=== PATIENT | male | born 2000 | race Caucasian/White ===

== ENCOUNTER 2022-02-03 08:00 | Outpatient (RCR) | payer OTHER, SELFPAY | END 2022-03-25 09:30 | disposition home or self-care (01) | PROVIDERS: Visit Provider Orthopaedic Surgery | DX: M25.561 Pain in right knee (principal); M25.661 Stiffness of right knee, not elsewhere classified; Z51.89 Encounter for other specified aftercare | CPT/HCPCS: 97110; 97112; 97140; 97161 ==

== ENCOUNTER 2024-07-11 12:52 | Outpatient (CLI) | payer OTHER, SELFPAY ==
--- NOTE | 2024-07-11 13:00 | CRLHL7_ITS ---
For Patients: As a result of the Century Cures Act, medical imaging exams and procedure reports are released immediately into your electronic medical record. You may view this report before your referring provider. If you have questions, please contact your health care provider. INDICATION: Left testicular swelling. TECHNIQUE: Scrotal ultrasound with grayscale and duplex Doppler images. FINDINGS: Both testicles are symmetrical in size and have normal parenchymal echogenicity. Right testicle measures 4.2 x 2.2 x 3.2 cm. Left testicle measures 4.3 x 2.3 x 3.1 cm. No solid testicular mass. Normal symmetric color and spectral Doppler flow to both testicles. No varicocele. No hydrocele. IMPRESSION: Normal scrotal ultrasound. Dictated by Charles Brown MD @ 07/12/2024 11:57:32 AM (Electronically Signed)
== END 2024-07-11 12:53 | disposition home or self-care (01) ==
LOC: US 12:54
PROVIDERS: PCP Internal Medicine; Visit Provider Internal Medicine
DX: N50.89 Other specified disorders of the male genital organs (principal)
CPT/HCPCS: 76870; 93976